=== PATIENT | female | born 1985 | race African-American/Black ===

== ENCOUNTER 2022-04-03 09:16 | Emergency (ER) | payer BC, OTHER ==
[~2022-04-03] VITALS: Ht 154.9 cm; Wt 50.4 kg
[2022-04-03 09:46] VITALS: BP 132/93
[2022-04-03] MEDS ORDERED: guaiFENesin-DM 100/10mg/5ml SYR PO ONE (10:15)
[2022-04-03] MEDS ORDERED: ACET1CAP14 PO (10:18)
[2022-04-03] MEDS ORDERED: PROM1SOL4 PO (10:18)
[2022-04-03] MEDS ORDERED: guaiFENesin-DM 100/10mg/5ml SYR ONE (10:35)
== END 2022-04-03 10:18 | disposition home or self-care (01) ==
LOC: ER 09:16
DX: U07.1 COVID-19 (principal)
CPT/HCPCS: 71045

== ENCOUNTER 2022-08-19 17:27 | Emergency (ER) | payer BC ==
[~2022-08-19] VITALS: Ht 154.9 cm; Wt 51.3 kg
[~2022-08-19 17:27] MED LIST: ACET1CAP14 PO; PROM1SOL4 PO
[2022-08-19 19:02] LABS: Basophils # (auto) 0 10 ^3/uL (0-0.2); Basophils % (auto) 0.4 % (0.0-2.0); Eosinophils # (auto) 0.1 10 ^3/uL (0-0.8); Eosinophils % (auto) 1.7 % (0.0-7.0); Hematocrit 33.7 % (36.0-46.0); Hemoglobin 11.6 g/dL (12.2-16.2); Lymphocytes # (auto) 0.8 10 ^3/uL (0.4-5.4); Lymphocytes % (auto) 17.7 % (10.0-50.0); Mean Corpuscular Hemoglobin 28.4 pg (28.0-32.0); Mean Corpuscular Hgb Conc. 34.4 g/dL (32.0-36.0); Mean Corpuscular Volume 82.3 fL (80.0-100.0); Monocytes # (auto) 0.4 10 ^3/uL (0-1.3); Monocytes % (auto) 8.6 % (0.0-12.0); Neutrophils # (auto) 3.3 10 ^3/uL (1.6-8.6); Neutrophils % (auto) 71.6 % (37.0-80.0); Nucleated Red Blood Cells % 0.2 %; Red Blood Cells 4.09 10^6/uL (4.0-5.20); Red Cell Distribution Width 13.7 % (11.8-14.3); White Blood Cell 4.6 10^3/uL (4.4-10.8)
[2022-08-19 21:07] VITALS: BP 111/77
== END 2022-08-19 21:12 | disposition home or self-care (01) ==
LOC: ER 17:27
DX: O20.0 Threatened abortion (principal); O16.2 Unspecified maternal hypertension, second trimester; Z3A.16 16 weeks gestation of pregnancy
CPT/HCPCS: 36415; 76805; 84702; 85025

== ENCOUNTER 2023-09-16 13:33 | Emergency (ER) | payer BC ==
[~2023-09-16] VITALS: Ht 154.9 cm; Wt 54.5 kg
[2023-09-16 14:13] LABS: Urine Bacteria None Seen /hpf (None Seen)
[2023-09-16 14:50] LABS: Urine Blood 2+ /uL (Negative); Urine Clarity Clear (Clear); Urine Color Light-Yellow (Yellow); Urine Protein, UAD Negative (Negative); Urine Urobilinogen Normal (Negative); Urine WBC <1 /hpf (0 - 5); Urine pH 6.5 (5.0-9.0)
[2023-09-16 20:32] VITALS: BP 134/79; PULSE 98; RESP 16; TEMP 99.2; O2SAT 95
== END 2023-09-16 20:22 | disposition home or self-care (01) ==
LOC: ER 13:33
DX: O20.0 Threatened abortion (principal); Z3A.01 Less than 8 weeks gestation of pregnancy
CPT/HCPCS: 36415; 76801; 76817; 81001; 84702

== ENCOUNTER 2023-09-18 07:35 | Emergency (ER) | payer BC ==
[~2023-09-18] VITALS: Ht 154.9 cm; Wt 52.2 kg
[2023-09-18 08:09] LABS: Urine Bacteria FEW /hpf (None Seen); Urine Blood 3+ /uL (Negative); Urine Clarity Clear (Clear); Urine Color Yellow (Yellow); Urine Hyaline Cast FEW /lpf (0 - 2); Urine Mucus FEW (None Seen); Urine Protein, UAD TRACE (Negative); Urine Specific Gravity 1.035 (1.001-1.035); Urine Urobilinogen Normal (Negative); Urine WBC 1 /hpf (0 - 5); Urine pH 5.5 (5.0-9.0)
[2023-09-18 08:09] LABS: Basophils # (auto) 0 10 ^3/uL (0-0.2); Basophils % (auto) 0.6 % (0.0-2.0); Eosinophils # (auto) 0.4 10 ^3/uL (0-0.8); Eosinophils % (auto) 7.9 % (0.0-7.0); Hematocrit 40.6 % (36.0-46.0); Hemoglobin 13.4 g/dL (12.2-16.2); Lymphocytes # (auto) 1.5 10 ^3/uL (0.4-5.4); Mean Corpuscular Hemoglobin 27.6 pg (28.0-32.0); Mean Corpuscular Volume 83.7 fL (80.0-100.0); Monocytes # (auto) 0.4 10 ^3/uL (0-1.3); Monocytes % (auto) 7.4 % (0.0-12.0); Neutrophils # (auto) 2.5 10 ^3/uL (1.6-8.6); Neutrophils % (auto) 53.1 % (37.0-80.0); Red Blood Cells 4.85 10^6/uL (4.0-5.20); Red Cell Distribution Width 13.5 % (11.8-14.3); White Blood Cell 4.8 10^3/uL (4.4-10.8)
[2023-09-18 08:34] LABS: Alanine Aminotransferase 19 U/L (7-40); Albumin 4.4 g/dL (3.2-4.8); Alkaline Phosphatase 61 U/L (46-116); Anion Gap 5 (5-15); Aspartate Aminotransferase 11 U/L (13-40); BUN/Creatinine Ratio 15.8 (10.0-20.0); Blood Urea Nitrogen 12 mg/dL (9-23); Calcium 9.5 mg/dL (8.5-10.1); Carbon Dioxide 27 mmol/L (20-30); Chloride 107 mmol/L (98-107); Glucose 87 mg/dL (74-106); Potassium 3.8 mmol/L (3.5-5.1); Sodium 139 mmol/L (136-145)
[2023-09-18 08:35] LABS: Bilirubin, Total 0.5 mg/dL (0.2-1.0); Total Protein 7.7 g/dL (5.7-8.2)
[2023-09-18 10:21] VITALS: TEMP 97.8
[2023-09-18] MEDS: HYDROcodone-ACET 5/325MG TAB PO ONE (10:27)
[2023-09-18] MEDS ORDERED: DOXY100C PO (11:30)
[2023-09-18 11:55] VITALS: BP 120/81; PULSE 76; RESP 18; O2SAT 98
== END 2023-09-18 11:55 | disposition home or self-care (01) ==
LOC: ER 07:35
DX: O20.0 Threatened abortion (principal); N93.9 Abnormal uterine and vaginal bleeding, unspecified; I10 Essential (primary) hypertension; Z3A.00 Weeks of gestation of pregnancy not specified; Z79.1 Long term (current) use of non-steroidal anti-inflammatories (NSAID); Z98.890 Other specified postprocedural states
CPT/HCPCS: 36415; 76801; 76817; 80053; 81001; 81025; 84702; 85025

== ENCOUNTER 2024-11-23 06:15 | Emergency (ER) | payer BC, OTHER ==
[~2024-11-23] VITALS: Ht 154.9 cm; Wt 58.1 kg
[~2024-11-23 06:15] MED LIST changes: +DOXY100C PO
[2024-11-23 06:38] VITALS: PULSE 80; RESP 12; O2SAT 97
--- NOTE | 2024-11-23 06:44 | ED.PDOC ---
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 Patient reports that she has been experiencing some spotting since Saturday while she is currently 14 weeks . Patient relays that this morning, she noticed droplets of blood now, prompting her to come to the ED. Patient states she follows up with an OBGYN in [place] due to having a high risk as she had a stillbirth in 2022 and a miscarriage in 2023. Patient denies any recent sexual activity, abdominal pain, dysuria, hematuria, fever, or chills. Chief Complaint: Vaginal Bleed Time Seen by MD: 06:42 Reviewed Notes: Nurses Notes, Medications, Allergies Allergies: Coded Allergies: NO KNOWN ALLERGIES (Unverified , 04/03/22) Home Meds Active Scripts Doxycycline Hyclate (Vibramycin) 100 Mg Cap, 1 CAP PO BID for 7 Days, #14 CAP Prov:DANIA MCDUFFIE MD 09/18/23 Acetaminophen (Tylenol) 325 Mg Cap, 325 MG PO Q4HPRN PRN, #30 CAP 0 Refills take 1-2 caps q4h prn Prov:FRANKLIN RUSH [employer] 04/03/22 Promethazine-Dm (Promethazine Dm 6.25-15 mg/5Ml) 1 Shavon Shavon, 5 ML PO Q4HPRN PRN, #120 ML 0 Refills Prov:FRANKLIN RUSH [facility] 04/03/22 Information Source: Patient Mode of Arrival: Ambulatory Timing: Days Prehospital treatment: None Severity: Mild Vaginal Discharge: None Vaginal Lesions: None Bleeding Quality: Bright Red Vaginal Mass: None Onset Of Mass/Bleeding: Spontaneous Sexual Activity: Last Consensual [place]: None Control: None History of: Current Associated Signs and Symptoms: Vaginal Bleeding Past Medical History PAST MEDICAL HISTORY: Denies Surgical History: Denies all surgeries SOLAR CONSULTANT History: Uterine Fibroids, Other Family History Family History: Reviewed,noncontributory to illness, Family hx of HTN Social History Smoker: Non-Smoker Alcohol: Denies ETOH Use Drugs: Denies Drug Use Lives In: Home Constitutional: denies: chills, diaphoresis, fatigue, fever, malaise, sweats, weakness, others EENTM: denies: blurred vision, double vision, ear bleeding, ear discharge, ear drainage, ear pain, ear ringing, eye pain, eye redness, hearing loss, mouth pain, mouth swelling, nasal discharge, nose bleeding, nose congestion, nose pain, photophobia, tearing, throat pain, throat swelling, voice changes, others Respiratory: denies: cough, hemoptysis, orthopnea, SOB at rest, shortness of breath, SOB with excertion, stridor, wheezing, others Cardiovascular: denies: chest pain, dizzy spells, diaphoresis, Dyspnea on exertion, edema, irregular heart beat, left arm pain, lightheadedness, palpitations, PND, syncope, others Gastrointestinal: denies: abdomen distended, abdominal pain, blood streaked bowels, constipated, diarrhea, dysphagia, difficulty swallowing, hematemesis, melena, nausea, poor appetite, poor fluid intake, rectal bleeding, rectal pain, vomiting, others Genitourinary: reports: abnormal vagina bleeding, ; denies: burning, dyspareunia, dysuria, flank pain, frequency, hematuria, incontinence, pain, vagina discharge, urgency, others Neurological: denies: dizziness, fainting, headache, left sided numbness, left sided weakness, numbness, paresthesia, pre-existing deficit, right sided numbness, right sided weakness, seizure, speech problems, tingling, tremors, weakness, others Musculoskeletal: denies: back pain, gout, joint pain, joint swelling, muscle pain, muscle stiffness, neck pain, others Integumetry: denies: bruises, change in color, change in hair/nails, dryness, laceration, lesions, lumps, rash, wounds, others Allergic/Immunocompromised: denies: Difficulty Healing, Frequent Infections, Hives, Itching, others Hematologic/Lymphatic: denies: anemia, blood clots, easy bleeding, easy brui sing, swollen glands, others Endocrine: denies: excessive hunger, excessive sweating, excessive thirst, ex cessive urination, flushing, intolerance to cold, intolerance to heat, unexplained weight gain, unexplained weight loss, others Psychiatric: denies: anxiety, bipolar disorder, depression, hopeless, panic disorder, schizophrenia, sleepless, suicidal, others All Other Systems: Reviewed and Negative Physical Exam General Appearance: Moderate Distress, Normal HEENT: Normal ENT Inspection, Pharynx Normal, TMs Normal Neck: Full Range of Motion, Non-Tender, Normal, Normal Inspection Respiratory: Chest Non-Tender, Lungs Clear, No Accessory Muscle Use, No Respiratory Distress, Normal Breath Sounds Cardiovascular: No Edema, No JVD, No Murmur, No Gallop, Normal Peripheral Pulses, Regular Rate/Rhythm Breast Exam: Deferred Gastrointestinal: No Organomegaly, Non Tender, No Pulsatile Mass, Normal Bowel Sounds, Soft Genitalia: Deferred Pelvic: Deferred Rectal: Deferred Extremities: No calf tenderness, Normal capillary refill, Normal inspection, Normal range of motion, Non-tender, No pedal edema Musculoskeletal : Apperance: Normal Neurologic: Alert, courier II-XII nml as Tested, No Motor Deficits, Normal Affect, Normal Mood, No Sensory Deficits Cerebellar Function: Normal Reflexes: Normal Skin: Dry, Normal Color, Warm Peripheral Pulses: 3+ Radial (R), 3+ Radial (L) Lymphatic: No Adenopathy Was a procedure done? Was a procedure done?: No Differential Diagnosis (SOLAR CONSULTANT) Vaginal Bleeding: - Complete, - Incomplete, - Inevitable, - Missed, - Threatened X-Ray, Labs, Meds, VS Vital Signs Date Time Temp Pulse Resp B/P (MAP) Pulse Ox O2 Delivery O2 Flow Rate FiO2 11/23/24 06:38 80 12 97 Room Air* 0 21 11/23/24 06:37 98.1 80 12 102/72 (82) 97 98.1 11/23/24 06:17 98.9 78 16 100/64 97 98.9 Lab Test 11/23/24 11:30 11/23/24 06:59 Range/Units Urine Color Yellow Yellow Urine Clarity Turbid H Clear Urine pH 7.0 5.0-9.0 Urine Specific [place] 1.024 1.001-1.035 Urine Protein Trace H Negative Urine Ketones Negative Negative Urine Blood Negative Negative /uL Urine Nitrite Negative Negative Urine Bilirubin Negative Negative Urine Urobilinogen Normal Negative mg/dL Urine Leukocyte Esterase 3+ Negative /uL Urine RBC 9 0 - 4 /hpf Urine Microscopic WBC 26 H 0-5 /HPF Urine Squamous Epithelial Cells Few <5 /hpf Urine Bacteria None seen None Seen /hpf Urine Mucus Few None Seen Urine Glucose Normal Normal mg/dL Beta HCG, Quantitative 75857.7 H 1.5-4.2 mIU/mL Patient alert. Complaining of vaginal spotting. Vitals stable. Answering questions. Was told to take her vitamins. Was told to drink plenty of fluids. Ultrasound reveals normal . She does have fibroid. Urinalysis shows UTI. Was given prescription of Keflex antibiotic. Explained to the patient. Continue monitoring. Was told to follow up with her OBGYN. Was told to follow up with her primary care physician. Was told to come back if there is any problem. [place] [id number] Ph: [phone] DIAGNOSTIC IMAGING Diagnostic Imaging Report : [id number] Signed PATIENT: JS SIMMONS ACCT: [id number] UNIT: [id number] : 1985 LOC: ER ROOM / BED: / AGE / SEX: 39 / F ADM STATUS: REG ER SERVICE 0638 ORDERING PHYSICIAN: OLY AMADOR MD PROCEDURE(s): OB4US - OB ULTRASOUND COMP LESS 14WKS REASON: bleeding ORDER NUMBER(s): [id number], ACCESSION NUMBER(s): [id number] CLINICAL HISTORY: bleeding COMPARISON:US OB ULTRASOUND COMP LESS 14WKS on DOS: 09/18/23, US OB ULTRASOUND COMP LESS 14WKS on DOS: 09/16/23, US OB ULTRASOUND COMP LESS 14WKS on DOS: 08/19/22 TECHNIQUE: Transvaginal and transabdominal grayscale sonographic imaging of the uterus and ovaries was performed, assisted by color Doppler technique. Duplex Doppler ultrasound of both ovaries was also performed. FINDINGS: The uterus measures 15.0 x 9.7 x 7.0 cm. There is an intrauterine gestational sac with fetus identified. [place]-rump length measures 7.06 cm, corresponding to an estimated gestational age of 13 weeks 2 days. heart rate measures 163 beats per minute. There is a placenta seen anteriorly. There is a uterine mass measuring up to 5.1 x 3.7 x 4.8 cm, suspected fibroid. Right ovary measures 2.8 x 2.0 x 2.2 cm. Arterial and venous blood flow demonstrated. Thick-walled cystic structure in the right ovary measures up to 2. 2 cm, possible corpus luteal cyst. Left ovary measures 2.8 x 1.9 x 2.1 cm. Arterial and venous blood flow demonstrated. Cystic structure with possible internal echoes in the left ovary measures up to 2.2 cm. IMPRESSION: 1. Single living intrauterine with estimated gestational age of 13 weeks 2 days based on 1st trimester ultrasound crown-rump length with JUSTINE of 05/29/2025. 2. Suspected fibroid in the uterus measuring up to 5.1 cm. 3. Probable corpus luteal cyst in the right ovary. Cyst with possible internal echoes in the left ovary, possible hemorrhagic cyst. ATED BY: VARUN MARIE DO DICTATED DATE/TIME: 11/23/24756 SIGNED BY: VARUN MARIE DO SIGNED DATE/TIME: 11/23/24756 CC: Images Reviewed?: Images reviewed and evaluated by me Time of 1ST Reevaluation: 07:41 Reevaluation 1ST: Unchanged Patient Education/Counseling: Diagnosis, Treatment Family Education/Counseling: No Family Present Departure 1 Departure Time of Disposition: 07:18 Impression: Primary Impression: Vaginal bleeding during Additional Impression: UTI (urinary tract infection) Qualified Codes: N30.00 - Acute cystitis without hematuria Disposition: 01 HOME / SELF CARE / HOMELESS Condition: Good e-Prescriptions Cephalexin (KEFLEX CAPSULE) 250 Mg Cp 250 MG PO QID for 7 Days, #28 BOTTLE Prov: OLY AMADOR MD 11/23/24 Discharged With: Self Critical Care Note Critical Care Time?: No Stability Stability form required: No Heart Score Heart Score: Heart Score Response (Comments) Value History N/A 0 EKG N/A 0 Age N/A 0 Risk Factors N/A 0 Troponin N/A 0 Total 0 I personally scribed for OLY AMADOR MD ([email or web address]) on 11/23/24 at 06:44. Electronically submitted by Antonio Avalos ([email or web address]). I personally scribed for OLY AMADOR MD ([email or web address]) on 11/23/24 at 08:00. Electronically submitted by Antonio Avalos ([email or web address]). OLY AMADOR MD Nov 23, 2024 06:44
--- NOTE | 2024-11-23 07:59 | DVH ---
CLINICAL HISTORY: bleeding COMPARISON:US OB ULTRASOUND COMP LESS 14WKS on DOS: 09/18/23, US OB ULTRASOUND COMP LESS 14WKS on DOS: 09/16/23, US OB ULTRASOUND COMP LESS 14WKS on DOS: 08/19/22 TECHNIQUE: Transvaginal and transabdominal grayscale sonographic imaging of the uterus and ovaries wa s performed, assisted by color Doppler technique. Duplex Doppler ultrasound of both ovaries was also performed. FINDINGS: The uterus measures 15.0 x 9.7 x 7.0 cm. There is an intrauterine gestational sac with fetu s identified. [place]-rump length measures 7.06 cm, corresponding to an estimated gestational age of 1 3 weeks 2 days. heart rate measures 163 beats per minute. There is a placenta seen anteriorly. There is a uterine mass measuring up to 5.1 x 3.7 x 4.8 cm, suspected fibroid. Right ovary measures 2.8 x 2.0 x 2.2 cm. Arterial and venous blood flow demonstrated. Thick-walled cy stic structure in the right ovary measures up to 2.2 cm, possible corpus luteal cyst. Left ovary measures 2.8 x 1.9 x 2.1 cm. Arterial and venous blood flow demonstrated. Cystic structure with possible internal echoes in the left ovary measures up to 2.2 cm. IMPRESSION: 1. Single living intrauterine with estimated gestational age of 13 weeks 2 days based on 1s t trimester ultrasound crown-rump length with JUSTINE of 05/29/2025. 2. Suspected fibroid in the uterus measuring up to 5.1 cm. 3. Probable corpus luteal cyst in the right ovary. Cyst with possible internal echoes in the left ova ry, possible hemorrhagic cyst.
[2024-11-23 11:58] LABS: Urine Protein, UAD TRACE (Negative)
[2024-11-23] MEDS ORDERED: CEPH250C PO (13:07)
[2024-11-23 13:15] VITALS: BP 124/68; PULSE 68; RESP 16; TEMP 98.7; O2SAT 98
== END 2024-11-23 13:16 | disposition home or self-care (01) ==
LOC: ER 06:15
DX: Z34.91 Encounter for supervision of normal pregnancy, unspecified, first trimester (principal); N39.0 Urinary tract infection, site not specified; Z3A.13 13 weeks gestation of pregnancy
CPT/HCPCS: 36415; 76801; 81001; 84702

== ENCOUNTER 2024-12-06 01:01 | Emergency (ER) | payer OTHER ==
[~2024-12-06] VITALS: Ht 162.6 cm; Wt 65.0 kg
[~2024-12-06 01:01] MED LIST changes: +CEPH250C PO
--- NOTE | 2024-12-06 01:25 | ED.PDOC ---
PLUG SORTER HPI Comments 39-year-old female came to ER for vaginal bleeding. Patient is a , approximately 14 to 15 weeks . States she started leaking fluid about a week ago, seen by her OB and was advised supportive management. 5 days ago she started having vaginal spotting. About an hour ago, while asleep, a huge gush of vaginal bleeding happened followed by lower abdominal cramping pain Chief Complaint: Vaginal Bleed Time Seen by MD: 01:25 Reviewed Notes: Nurses Notes Allergies: Coded Allergies: NO KNOWN ALLERGIES (Unverified , 04/03/22) Home Meds Active Scripts Cephalexin (KEFLEX CAPSULE) 250 Mg Cp, 250 MG PO QID for 7 Days, #28 BOTTLE Prov:OLY AMADOR MD 11/23/24 Doxycycline Hyclate (Vibramycin) 100 Mg Cap, 1 CAP PO BID for 7 Days, #14 CAP Prov:DANIA MCDUFFIE MD 09/18/23 Acetaminophen (Tylenol) 325 Mg Cap, 325 MG PO Q4HPRN PRN, #30 CAP 0 Refills take 1-2 caps q4h prn Prov:FRANKLIN RUSH 04/03/22 Promethazine-Dm (Promethazine Dm 6.25-15 mg/5Ml) 1 Shavon Shavon, 5 ML PO Q4HPRN PRN, #120 ML 0 Refills Prov:FRANKLIN RUSH [facility] 04/03/22 Information Source: Patient Mode of Arrival: Ambulatory Timing: Days Severity: Severe Vaginal Discharge: None Vaginal Lesions: None Bleeding Quality: Bright Red Vaginal Mass: None Onset Of Mass/Bleeding: Spontaneous Sexual Activity: History of: Current Associated Signs and Symptoms: Vaginal Bleeding, Abdominal Pain Past Medical History PAST MEDICAL HISTORY: Denies Surgical History: Denies all surgeries 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: Uterine Fibroids, Other 4 Para 1 LMP Aug 18 2024 Family History Family History: Reviewed,noncontributory to illness, Family hx of HTN Social History Smoker: Non-Smoker Alcohol: Denies ETOH Use Drugs: Denies Drug Use Lives In: Home Constitutional: denies: chills, diaphoresis, fatigue, fever, malaise, sweats, weakness, others EENTM: denies: blurred vision, double vision, ear bleeding, ear discharge, ear drainage, ear pain, ear ringing, eye pain, eye redness, hearing loss, mouth pa in, mouth swelling, nasal discharge, nose bleeding, nose congestion, nose pain, photophobia, tearing, throat pain, throat swelling, voice changes, others Respiratory: denies: cough, hemoptysis, orthopnea, SOB at rest, shortness of breath, SOB with excertion, stridor, wheezing, others Cardiovascular: denies: chest pain, dizzy spells, diaphoresis, Dyspnea on exertion, edema, irregular heart beat, left arm pain, lightheadedness, palpitations, PND, syncope, others Gastrointestinal: reports: abdominal pain; denies: abdomen distended, blood streaked bowels, constipated, diarrhea, dysphagia, difficulty swallowing, hematemesis, melena, nausea, poor appetite, poor fluid intake, rectal bleeding, rectal pain, vomiting, others Genitourinary: reports: abnormal vagina bleeding; denies: burning, dyspareunia, dysuria, flank pain, frequency, hematuria, incontinence, pain, , vagina discharge, urgency, others Neurological: denies: dizziness, fainting, headache, left sided numbness, left sided weakness, numbness, paresthesia, pre-existing deficit, right sided numbness, right sided weakness, seizure, speech problems, tingling, tremors, weakness, others Musculoskeletal: denies: back pain, gout, joint pain, joint swelling, muscle pain, muscle stiffness, neck pain, others Integumetry: denies: bruises, change in color, change in hair/nails, dryness, laceration, lesions, lumps, rash, wounds, others Allergic/Immunocompromised: denies: Difficulty Healing, Frequent Infections, Hives, Itching, others Hematologic/Lymphatic: denies: anemia, blood clots, easy bleeding, easy bruising, swollen glands, others Endocrine: denies: excessive hunger, excessive sweating, excessive thirst, excessive urination, flushing, intolerance to cold, intolerance to heat, unexplained weight gain, unexplained weight loss, others Psychiatric: denies: anxiety, bipolar disorder, depression, hopeless, panic di sorder, schizophrenia, sleepless, suicidal, others Physical Exam General Appearance: No Apparent Distress, Normal HEENT: Normal ENT Inspection, Pharynx Normal, TMs Normal Neck: Full Range of Motion, Non-Tender, Normal, Normal Inspection Respiratory: Chest Non-Tender, Lungs Clear, No Accessory Muscle Use, No Respiratory Distress, Normal Breath Sounds Cardiovascular: No Edema, No JVD, No Murmur, No Gallop, Normal Peripheral Pulses, Regular Rate/Rhythm Breast Exam: Deferred Gastrointestinal: No Organomegaly, Non Tender, No Pulsatile Mass, Normal Bowel Sounds, Soft Genitalia: Deferred Pelvic: Deferred Rectal: Deferred Extremities: No calf tenderness, Normal capillary refill, Normal inspection, Normal range of motion, Non-tender, No pedal edema Musculoskeletal : Apperance: Normal Neurologic: Alert, bellows assembler II-XII nml as Tested, No Motor Deficits, Normal Affect, Normal Mood, No Sensory Deficits Cerebellar Function: Normal Reflexes: Normal Skin: Dry, Normal Color, Warm Lymphatic: No Adenopathy Was a procedure done? Was a procedure done?: No Differential Diagnosis (WASTE SPECIALIST) Vaginal Bleeding: - Inevitable, - Missed, - Threatened, Abruptio Placentae, Blood Loss Anemia, Placenta Previa X-Ray, Labs, Meds, VS Vital Signs Date Time Temp Pulse Resp B/P (MAP) Pulse Ox O2 Delivery O2 Flow Rate FiO2 12/06/24 01:28 80 20 98 Room Air* 0 21 12/06/24 01:28 98.1 82 20 105/68 (80) 98 98.1 12/06/24 01:05 98.0 78 24 117/44 100 98.0 Lab Test 12/06/24 01:30 Range/Units White Blood Count 9.3 4.4-10.8 10^3/uL Red Blood Count 4.09 4.0-5.20 10^6/uL Hemoglobin 11.6 L 12.2-16.2 g/dL Hematocrit 33.6 L 36.0-46.0 % Mean Corpuscular Volume 82.2 80.0-100.0 fL Mean Corpuscular Hemoglobin 28.4 28.0-32.0 pg Mean Corpuscular Hemoglobin Concent 34.6 32.0-36.0 g/dL Red Cell Distribution Width 13.5 11.8-14.3 % Platelet Count 199 140-450 10^3/uL Mean Platelet Volume 8.0 6.9-10.8 fL Neutrophils (%) (Auto) 67.5 37.0-80.0 % Lymphocytes (%) (Auto) 23.9 10.0-50.0 % Monocytes (%) (Auto) 5.0 0.0-12.0 % Eosinophils (%) (Auto) 3.3 0.0-7.0 % Basophils (%) (Auto) 0.3 0.0-2.0 % Neutrophils # (Auto) 6.3 1.6-8.6 10 ^3/uL Lymphocytes # (Auto) 2.2 0.4-5.4 10 ^3/uL Monocytes # (Auto) 0.5 0-1.3 10 ^3/uL Eosinophils # (Auto) 0.3 0-0.8 10 ^3/uL Basophils # (Auto) 0 0-0.2 10 ^3/uL Nucleated Red Blood Cells 0.0 % Sodium Level 136 136-145 mmol/L Potassium Level 3.5 3.5-5.1 mmol/L Chloride Level 104 98-107 mmol/L Carbon Dioxide Level 22 20-31 mmol/L Anion Gap 10 5-15 Blood Urea Nitrogen 5 L 9-23 mg/dL Creatinine 0.57 0.550-1.02 mg/dL Glomerular Filtration Rate Calc 119 >90 mL/min BUN/Creatinine Ratio 8.8 L 10.0-20.0 Serum Glucose 109 H 74-106 mg/dL Calcium Level 8.9 8.7-10.4 mg/dL Beta HCG, Quantitative 19759.3 H 1.5-4.2 mIU/mL Current Medications Medications (Trade) Dose Ordered Sig/Jose Antonio Route Start Time Stop Time Status Last Admin Acetaminophen/ Hydrocodone Bitart ([place] 5/325MG Tab) 1 tab ONCE ONCE PO 12/06/24 01:45 12/06/24 01:46 DC 12/06/24 01:45 OB ULTRASOUND, LIMITED CLINICAL INDICATION: 14-15 wks , vag bleed and discharge , pain TECHNIQUE: Multiple grayscale ultrasound and M-mode images were obtained of the pelvis for evaluation of intrauterine . COMPARISON: US OB ULTRASOUND COMP LESS 14WKS on DOS: 11/23/24, US OB ULTRASOUND COMP LESS 14WKS on DOS: 09/18/23, US OB TRANS VAGINAL US on DOS: 09/18/23 FINDINGS: A single living fetus is seen in cephalic presentation. Biparietal diameter: 2.61 cm (14 weeks, 4 days) Head Circumference: 11.43 cm (15 weeks, 4 days) Abdomen Circumference: 9.49 cm (15 weeks, 4 days) Femur Length: 1.97 cm (15 weeks, 6 days) Estimated weight: 132 grams (+/- 19.8 grams). Placenta: Anterior. Amniotic fluid: No significant fluid heart rate: 157 beats/min. A complete anatomic survey was not performed on this exam. IMPRESSION: 1. Single living intrauterine with an estimated gestational age of 15 weeks, 3 days, corresponding to an estimated date of delivery of 05/27/2025. 2. No significant amniotic fluid around the fetus. Time of 1ST Reevaluation: 01:16 Reevaluation 1ST: Unchanged Consultation: de icer kit assembler Patient Education/Counseling: Diagnosis, Treatment Family Education/Counseling: No Family Present Departure 1 Departure Time of Disposition: 03:49 Impression: Primary Impression: 15 weeks gestation of Additional Impression: premature rupture of membranes (PPROM) with unknown onset of labor Disposition: 01 HOME / SELF CARE / HOMELESS Condition: Fair Discharged With: Self, Relative, Spouse Comments Ultrasound shows a heartbeat but there is no fluid around the fetus. Patient has a history of already diagnosed P P ROM. I discussed the case with OBGYN on-call Dr. Yarbrough is. He recommends expected management with discharge home and close follow up with her [place] [facility]BG[facility] doctor Critical Care Note Critical Care Time?: No Stability Stability form required: No Heart Score Heart Score: Heart Score Response (Comments) Value History N/A 0 EKG N/A 0 Age N/A 0 Risk Factors N/A 0 Troponin N/A 0 Total 0 I personally scribed for NEELAM BANERJEE MD ([email or web address]) on 12/06/24 at 01:25. Electronically submitted by Gumaro Matt ([email or web address]). I personally scribed for NEELAM BANERJEE MD ([email or web address]) on 12/06/24 at 02:39. Electronically submitted by Gumaro Matt ([email or web address]). NEELAM BANERJEE MD Dec 06, 2024 01:25
[2024-12-06 01:28] VITALS: PULSE 80; RESP 20; TEMP 98.1; O2SAT 98
[2024-12-06] MEDS: HYDROcodone-ACET 5/325MG TAB PO ONE (01:45)
[2024-12-06 01:49] LABS: Hematocrit 33.6 % (36.0-46.0); Hemoglobin 11.6 g/dL (12.2-16.2); Mean Corpuscular Hemoglobin 28.4 pg (28.0-32.0); Mean Corpuscular Volume 82.2 fL (80.0-100.0); Nucleated Red Blood Cells % 0.0 %
[2024-12-06 01:59] LABS: Chloride 104 mmol/L (98-107); Potassium 3.5 mmol/L (3.5-5.1)
[2024-12-06 02:00] LABS: Anion Gap 10 (5-15); Calcium 8.9 mg/dL (8.7-10.4); Carbon Dioxide 22 mmol/L (20-31)
[2024-12-06 02:05] LABS: BUN/Creatinine Ratio 8.8 (10.0-20.0)
[2024-12-06 02:15] LABS: Blood Urea Nitrogen 5 mg/dL (9-23); Glucose 109 mg/dL (74-106); Sodium 136 mmol/L (136-145)
--- NOTE | 2024-12-06 02:27 | DVH ---
OB ULTRASOUND, LIMITED CLINICAL INDICATION: 14-15 wks , vag bleed and discharge , pain TECHNIQUE: Multiple grayscale ultrasound and M-mode images were obtained of the pelvis for evaluation of intrauterine . COMPARISON: US OB ULTRASOUND COMP LESS 14WKS on DOS: 11/23/24, US OB ULTRASOUND COMP LESS 14WKS on DOS : 09/18/23, US OB TRANS VAGINAL US on DOS: 09/18/23 FINDINGS: A single living fetus is seen in cephalic presentation. Biparietal diameter: 2.61 cm (14 weeks, 4 days) Head Circumference: 11.43 cm (15 weeks, 4 days) Abdomen Circumference: 9.49 cm (15 weeks, 4 days) Femur Length: 1.97 cm (15 weeks, 6 days) Estimated weight: 132 grams (+/- 19.8 grams). Placenta: Anterior. Amniotic fluid: No significant fluid heart rate: 157 beats/min. A complete anatomic survey was not performed on this exam. IMPRESSION: 1. Single living intrauterine with an estimated gestational age of 15 weeks, 3 days, dragan esponding to an estimated date of delivery of 05/27/2025. 2. No significant amniotic fluid around the fetus.
[2024-12-06 04:08] VITALS: BP 108/72; PULSE 71; RESP 18; O2SAT 98
== END 2024-12-06 04:10 | disposition home or self-care (01) ==
LOC: ER 01:01
DX: O42.912 Preterm premature rupture of membranes, unspecified as to length of time between rupture and onset of labor, second trimester (principal); Z3A.15 15 weeks gestation of pregnancy; Z86.018 Personal history of other benign neoplasm; Z79.899 Other long term (current) drug therapy
CPT/HCPCS: 36415; 76805; 80048; 84702; 85025; 86901